=== PATIENT | male | born 1965 | race Caucasian/White ===

== ENCOUNTER 2019-03-30 23:42 | Emergency (ER) | payer OTHER ==
[~2019-03-30 23:42] MED LIST: Iopamidol 370 76% 100 ML VIAL ONE
[2019-03-31] MEDS ORDERED: Ondansetron PF 4 MG/2 ML Vial ONE (00:01)
[2019-03-31] MEDS ORDERED: Morphine 4 MG/ML VIAL ONE ×3 (00:01→01:57)
[2019-03-31 00:03] LABS: Hemoglobin 15.6 g/dL (14.0-18.0); Mean Corpuscular HGB CONC 35.9 g/dL (32.0-36.0); Mean Corpuscular Hemoglobin 33.3 pg (27.0-31.0); Mean Corpuscular Volume 92.9 fL (78.0-98.0); Platelet Count 347 thou/uL (130-400); RBC Distribution Width 14.3 % (11.5-14.5); Red Blood Cell (RBC) Count 4.68 mill/uL (4.70-6.10)
[2019-03-31 00:18] LABS: Band 3 % (5-11); Lymphocytes 10 % (21-51); MDiff Complete? YES; Monocytes 8 % (0-10); Neutrophil 79 % (42-75); Platelet Morphology Comment Appears Adequate; RBC Morphology Normal
[2019-03-31 00:24] LABS: ALT (SGPT) 7 U/L (8-55); AST (SGOT) 17 U/L (5-34); Albumin 4.2 g/dL (3.5-5.0); Alkaline Phosphatase 116 U/L (40-110); Anion Gap 17 mmol/L (10-20); BUN (Urea Nitrogen) 13 mg/dL (8.4-25.7); Bilirubin, Total 1.5 mg/dL (0.2-1.2); Calc. Creatinine Clearance 0 mL/min (70-130); Calcium 9.7 mg/dL (7.8-10.44); Carbon Dioxide 24 mmol/L (22-29); Chloride 103 mmol/L (98-107); Estimated GFR-MDRD Greater than 90; Globulin 2.4 g/dL (2.4-3.5); Glucose 118 mg/dL (70-105); Lipase 8 U/L (8-78); Potassium 4.2 mmol/L (3.5-5.1); Protein, Total 6.6 g/dL (6.0-8.3); Sodium 140 mmol/L (136-145)
[2019-03-31] MEDS ORDERED: Sodium Chloride 0.9% 1,000 ML ONE ×2 (01:05)
[2019-03-31] MEDS ORDERED: Lidocaine 2% Jelly 5 ML TUBE ONE (01:50)
[2019-03-31 02:03] LABS: Bilirubin Negative (Negative); Blood, Urine Negative (Negative); Clarity Clear (Clear); Glucose, Urine (Dipstick) Negative (Negative); Leukocyte Negative (Negative); Nitrite Negative (Negative); Protein, Urine (Dipstick) Negative (Neg-Trace)
--- NOTE | 2019-03-31 08:49 | CT ---
PRELIMINARY REPORT/[facility]/EMERGENCY AFTER HOURS PROCEDURE Receipt of this report by the clinical staff was confirmed with Hannah García RN by Swati Deleon on Mar 31, 2019 01:30:00 [facility]. Addendum electronically signed by Ligia Deleon on March 31 0 1:30:47 AM [facility] EXAM: CT Abdomen and Pelvis with Intravenous Contrast CLINICAL HISTORY: ABD. PAIN, BLOATING, H/O SBO TECHNIQUE: Axial computed tomography images of the abdomen and pelvis with intravenous contrast. CONTRAST: With; ISOVUE [id number] ML COMPARISON: None provided. FINDINGS: LUNG BASES: Moderate right pleural effusion with superimposed right base atelectasis versus early con solidation. Follow-up to exclude pneumothorax and parenchymal contusion. LIVER: Unremarkable. GALLBLADDER AND BILE DUCTS: Unremarkable. No calcified stone. No ductal dilation. PANCREAS: Unremarkable. SPLEEN: Unremarkable. ADRENAL GLANDS: Unremarkable. KIDNEYS, URETERS, AND BLADDER: 14 x 17 cm hyperdense amorphus right posterior perinephric mass is pre sent, effacing the posterior border of the right kidney and displacing the right kidney anteriorly/me dially; finding is compatible with hemorrhage/hematoma. Follow-up to resolution to exclude soft tissu e malignancy. STOMACH AND BOWEL: Moderate nonspecific prominent mid abdominal small bowel loops, correlate for ileu s or partial obstruction. Diverticulosis without evidence of acute diverticulitis. The distal colon i s suboptimally distended, apparent wall thickening may be exaggerated secondary to under-distention, nevertheless, correlate for possible inflammation or soft tissue infiltration and consider follow-up. APPENDIX: Normal appendix. PERITONEUM: No free fluid. No free air. LYMPH NODES: No lymphadenopathy. REPRODUCTIVE: Unremarkable as visualized. VASCULATURE: No aortic aneurysm. BONES: Moderate osseous degenerative changes. ABDOMINAL WALL AND SOFT TISSUES: Unremarkable. MISCELLANEOUS: Left hip prosthesis. IMPRESSION: 1. 14 x 17 cm hyperdense amorphus right posterior perinephric mass, compatible with acute hemorrhage/ hematoma. No evidence of vectibix or position of the administered intravenous contrast. Follow-up. 2. Moderate nonspecific prominent mid abdominal small bowel loops, correlate for ileus or obstruction . 3. Moderate right pleural effusion with superimposed right base atelectasis versus early consolidatio n. Follow-up to exclude pneumothorax and parenchymal contusion. ELECTRONICALLY SIGNED BY: Emilio Johnson MD Mar 31, 2019 1:24:38 AM [facility] FINAL REPORT EMERGENT AFTER HOURS CT ABDOMEN AND PELVIS PERFORMED WITH CONTRAST: HISTORY: Abdominal pain, nausea, and vomiting. History of a retroperitoneal bleed. COMPARISON: A 03/16/2019 and 02/24/2019 exams. There is a large right pleural effusion seen. There is atelectas is in the right lung base. The left lung is clear of any infiltrative process. The liver, spleen, pancreas, and gallbladder regions are unremarkable. Right and left adrenal glands are normal. Once again, there is a large retroperitoneal mass which is largely in the perinephric space displacing the kidney anteriorly and indistinguishable from the rig ht psoas muscle in areas. There are some areas of somewhat confluent nodularity just outside the per irenal space. Overall appearance is fairly similar to the previous exam. Postoperative changes of the stomach are present. There is dilatation of the proximal small bowel. There is nondilated more distal small bowel loops present. There is air throughout the colon. CT OF PELVIS PERFORMED WITH CONTRAST ENHANCEMENT: Sigmoid diverticulosis is noted. No free fluid demonstrated. Postoperative changes of the left hip are present. IMPRESSION: 1. Persistent large retroperitoneal mass-like density on the right displacing the kidney anteriorly and indistinguishable from parts of the psoas muscle. Reportedly, the patient has had a retroperiton eal bleed. The appearance is fairly similar to the previous 2 exams. Underlying mass is not totally excluded as a possibility. 2. Findings that would suggest a partial small bowel obstruction. 3. Large right pleural effusion with right lower lobe atelectasis. 4. This report is in agreement with the temporary report issued by [facility]. POS: [facility]
== END 2019-03-31 02:39 | disposition short-term general hospital (02) ==
LOC: MADERS 23:42
DX: K56.609 Unspecified intestinal obstruction, unspecified as to partial versus complete obstruction (principal); G47.30 Sleep apnea, unspecified; E78.2 Mixed hyperlipidemia; I10 Essential (primary) hypertension; F32.9 Major depressive disorder, single episode, unspecified; F41.9 Anxiety disorder, unspecified; R73.03 Prediabetes; F17.220 Nicotine dependence, chewing tobacco, uncomplicated; Z79.84 Long term (current) use of oral hypoglycemic drugs; Z79.899 Other long term (current) drug therapy
CPT/HCPCS: 74177; 80053; 81003; 83605; 83690; 85025; 96361; 96374; 96375; 96376; J2270; J2405; J7050; Q9967